=== PATIENT | male | born 1990 | race American Indian/Alaskan Native ===

== ENCOUNTER 2017-08-25 07:55 | Emergency (ER) | payer SELFPAY ==
[2017-08-25 08:24] VITALS: BP 134/84
--- NOTE | 2017-08-25 08:53 | Emergency Department Report ---
Eye Injury/Foreign Body - HPI Duration: 1 Day Eye Location: Left Severity: Mild Tetanus Status: Up to Date Eye Symptoms: Eye Pain: No, Blurred Vision: No, Eye Redness: Yes, Grinding/ Hammering Metal: No, Used Eye Protection: No, Contact Lens Use: No, Recalls Injury: No, Photophobia: No Other History: This is a 27-year-old male nontoxic, well nourished in appearance , no acute signs of distress presents to the ED with c/o of left upper eyelid swelling, redness and itching 1 day. Patient denies any trauma to the area. Patient denies any visual changes. Patient denies any chest pain, short of breath, fever, chills, headache, stiff neck, abdominal pain, numbness or tingling. Patient denies any allergies or significant past medical history. ED Review of Systems ROS: Stated complaint: LEFT EYE SWOLLEN Other details as noted in HPI Constitutional: denies: chills, fever Eyes: denies: eye pain, eye discharge, vision change ENT: other (left eyelid swelling). denies: ear pain, throat pain Respiratory: denies: cough, shortness of breath, wheezing Cardiovascular: denies: chest pain, palpitations Endocrine: no symptoms reported Gastrointestinal: denies: abdominal pain, nausea, diarrhea Genitourinary: denies: urgency, dysuria Musculoskeletal: denies: back pain, joint swelling, arthralgia Skin: denies: rash, lesions Neurological: denies: headache, weakness, paresthesias Psychiatric: denies: anxiety, depression Hematological/Lymphatic: denies: easy bleeding, easy bruising ED Past Medical Hx - Past Medical History Previous Medical History?: No - Surgical History Past Surgical History?: No - Social History Smoking Status: Current Every Day Smoker - Medications Home Medications: Home Medications Medication Instructions Recorded Confirmed Last Taken Type Azithromycin [Zithromax Z-LANI] 250 mg PO DAILY #6 tablet 08/25/17 Unknown Rx Erythromycin [Erythromycin Ophth 10 applic OP TID #1 tube 08/25/17 Unknown Rx Oint] Eye Injury Exam - Exam General: Vital signs noted. No distress. Alert and acting appropriately. GENERAL: The patient is a well-developed, well-nourished in no apparent distress. Patient is alert and acting appropriately for age. Alert and oriented 3, no apparent distress, normal gait, atraumatic. HEENT: Head is normocephalic and atraumatic. PERRL, Extraocular muscles are intact. Left upper eyelid redness with slight swelling and itching. Pupils are equal, round, and reactive to light and accommodation. Nares appeared normal. Mouth is well hydrated and without lesions. Mucous membranes are moist. Posterior pharynx clear of any exudate or lesions. Mouth is well hydrated and without lesions. Tonsils not erythematous or swollen. Uvula midline. Tongue elevated. Mucous members are moist. Posterior pharynx clear, no exudate or lesions. Patent airways. NECK: Supple. No carotid bruits. No lymphadenopathy or thyromegaly.nontender. No meningitic signs are noted. LUNGS: Clear to auscultation. Non labor breathing. No intercostal retractions. Symmetrical with respiration, no wheezing, no rales, or crackles. HEART: Regular rate and rhythm without murmur, rubs or gallops. No reproducible. S1, S2 present, regular rate and rhythm without murmur, no rubs, no gallops. ABDOMEN: Soft, nontender, and nondistended. Positive bowel sounds. No hepatosplenomegaly was noted. No guarding or rebound tenderness, negative epigastric bruit. Negative psoas sign, negative hampton sign, negative McBurneys sign EXTREMITIES: Without any cyanosis, clubbing, rash, lesions or edema. Peripheral pulses intact. Capillary refill less than 2 seconds. Full range of motion bilaterally. NEUROLOGIC: Cranial nerves II through XII are grossly intact. Alert and oriented x 3. Normal gait. Symmetrical strength and sensation. Reflexes 2+ throughout. Cerebellar testing normal. GCS score of 15. PSYCHIATRIC: Normal affect with no suicidal or homicidal ideations. - Visual Acuity Left Vision Acuity Degree: 20/15 Eye Exam: Neither Injection, Neither Chemosis, Neither Abnormal Pupil, Neither EOMI, Neither Eye Foreign Body, Neither Lid Foreign Body, Neither Mucous Discharge, Neither Purulent Discharge, Neither Fluorescein Uptake, Neither Fluorescein Uptake (slit lamp), Neither Cell/Flare (slit lamp), Neither Corneal Edema, Neither Photophobia ED Course Vital Signs 08/25/17 08:20 Temperature 98.4 F Pulse Rate 86 Respiratory 16 Rate Blood Pressure 134/84 O2 Sat by Pulse 98 Oximetry - Reevaluation(s) Reevaluation #1: 08/25/17 08:49 Patient is speaking in full sentences with no signs of distress noted. ED Medical Decision Making - Medical Decision Making This is a 27-year-old male that presents with left blepharitis. Patient is stable and was examined by me. There is no visual changes. Normal visual acuity. There is no periorbital swelling or periorbital cellulitis. Patient is discharged with erythromycin ointment and patient stated he is currently in the and needs immediate relief so I will prescribe patient a Z-Lani as well. Patient was educated on blepharitis and how to properly treat it with warm compresses and patient has been provided information for patient dictation from up-to-date. Patient was referred to Follow-up with a primary care doctor in 3-5 days or if symptoms worsen and continue return to emergency room as soon as possible. At time of discharge, the patient does not seem toxic or ill in appearance. No acute signs of distress noted. Patient agrees to discharge treatment plan of care. No further questions noted by the patient. Critical care attestation.: If time is entered above; I have spent that time in minutes in the direct care of this critically ill patient, excluding procedure time. ED Disposition Clinical Impression: Blepharitis Qualifiers: Blepharitis type: unspecified type Laterality: left Eyelid: upper Qualified Code(s): H01.004 - Unspecified blepharitis left upper eyelid Disposition: DC-01 TO HOME OR SELFCARE Is pt being admited?: No Does the pt Need Aspirin: No Condition: Stable Instructions: Blepharitis (ED) Additional Instructions: Follow-up with a primary care doctor in 3-5 days or if symptoms worsen and continue return to emergency room as soon as possible. Prescriptions: Azithromycin [Zithromax Z-LANI] 250 mg PO DAILY #6 tablet Erythromycin [Erythromycin Ophth Oint] 10 applic OP TID #1 tube Referrals: PRIMARY CARE, [Referring] - 3-5 Days YENIFER MANLEY MD [Staff Physician] - 3-5 Days [facility] [Outside] - 3-5 Days [facility] [Outside] - 3-5 Days Forms: Work/School Release Form(ED)
== END 2017-08-25 09:07 | disposition home or self-care (01) ==
LOC: ED 07:55
DX: H01.004 Unspecified blepharitis left upper eyelid (principal); F17.200 Nicotine dependence, unspecified, uncomplicated
CPT/HCPCS: 99282